=== PATIENT | female | born 1940 | race African-American/Black ===

== ENCOUNTER → 2016-06-28 | Outpatient (CLI) | payer MEDICARE, OTHER ==
[2014-04-18 09:10] VITALS: BP 138/76
[~2016-06-28] MED LIST: ALBU2.5V14 NEB; AMLO10TA2 PO; ATOR20TA58 PO; EZET10TA3 PO; FLUT12AE IH; HYDR28OI2 TP; METF500T4 PO; METH750T2 PO; MOME17SP NS; MONT10TA9 PO; MULT1TAB52 PO; OMEP20CA9 PO; OXYC10TA PO; OXYC80TA16 PO; PARO20TA3 PO; PIOG30TA20 PO; PREG100C PO; PROM6.25 PO; VALS1TAB22 PO; [UNRECOGNIZED DRUG - CODE] MC
--- NOTE | 2016-06-28 16:16 | RAD ---
DATE: 06/28/2016 EXAM: DIGITAL SCREEN BILAT W/CAD HISTORY: Routine screening COMPARISON: 03/11/2015 This study was interpreted with the benefit of Computerized Aided Detection (CAD). FINDINGS: Breast Density: SCATTERED The breast parenchyma shows scattered fibroglandular densities. Breast parenchyma level B. There are no dominant suspicious masses, suspicious microcalcifications or evidence of architectural distortion. Benign-appearing lymph node identified in the right upper outer breast.. Numerous benign-appearing calcifications identified in the bilateral breasts. IMPRESSION: Benign findings BI-RADS CATEGORY: 2 BENIGN FINDING RECOMMENDED FOLLOW-UP: 12M 12 MONTH FOLLOW-UP PQRS compliance statement: Patient information was entered into a reminder system with a target due date 06/28/2017 for the next mammogram. Mammography is a sensitive method for finding small breast cancers, but it does not detect them all and is not a substitute for careful clinical examination. A negative mammogram does not negate a clinically suspicious finding and should not result in delay in biopsying a clinically suspicious abnormality. "Our facility is accredited by the [employer] Mammography Program."
== END | disposition home or self-care (01) ==
LOC: MAMMO 14:29
PROVIDERS: ATTEND Obstetrics & Gynecology
DX: Z12.31 Encounter for screening mammogram for malignant neoplasm of breast (principal)
CPT/HCPCS: G0202; 77067

== ENCOUNTER → 2016-11-17 | Outpatient (CLI) | payer MEDICARE, OTHER ==
[2014-04-18 09:10] VITALS: BP 138/76
[~2016-11-17] MED LIST changes: +EZET10TA18 PO; -EZET10TA3 PO; -PIOG30TA20 PO; +PIOG30TA41 PO
--- NOTE | 2016-11-17 12:33 | RAD ---
Carotid ultrasound, 11/17/2016: History: Carotid bruit Duplex evaluation of the carotid arteries in the neck was performed including grayscale, color-flow and spectral Doppler analysis. There is mild intimal thickening and smooth plaquing at the carotid bifurcations. The peak systolic velocity in the right internal carotid artery is 76 cm/s an end-diastolic velocity of 26 cm/s. The peak systolic velocity in the left internal carotid artery is 59 cm/s with an end-diastolic velocity of 16 cm/s. No significant velocity acceleration is seen on either side to suggest high-grade stenosis. Antegrade flow is present in both vertebral arteries in the neck. IMPRESSION: Mild atherosclerotic plaquing at the carotid bifurcations with underlying luminal narrowing in the 0-50% diameter range bilaterally. Note: Stenosis calculations for CTA, MRA and conventional angiography are based upon determination of the distal ICA diameter in accordance with the NASCET methodology. Stenosis calculations for Doppler studies are derived from validated velocity criteria which are known to correlate with NASCET methodology of determining stenosis.
== END | disposition home or self-care (01) ==
LOC: US 13:10
PROVIDERS: ATTEND Family Medicine
DX: I65.23 Occlusion and stenosis of bilateral carotid arteries (principal)
CPT/HCPCS: 93880

== ENCOUNTER → 2017-06-30 | Outpatient (CLI) | payer MEDICARE, OTHER | END | disposition home or self-care (01) | LOC: MAMMO 12:53 | DX: Z12.31 Encounter for screening mammogram for malignant neoplasm of breast (principal); I10 Essential (primary) hypertension | CPT/HCPCS: 77063; 77067 ==

== ENCOUNTER 2017-10-13 11:36 | Inpatient (IN) | payer MEDICARE, OTHER ==
[~2017-10-13] VITALS: Ht 157.5 cm; Wt 66.7 kg
[~2017-10-13 11:36] MED LIST changes: -AMLO10TA2 PO; +AMLO10TA6 PO; +METF500T16 PO; -METF500T4 PO; -PROM6.25 PO; +PROM6.257 PO
[2017-10-13] MEDS ORDERED: fentaNYL PF VIAL 100 MCG/2 ML VIAL IV ONE ×2 (12:30→14:00)
[2017-10-13 12:35] LABS: BILIRUBIN,URINE NEGATIVE (NEG); CLARITY,URINE CLEAR; COLOR,URINE YELLOW; NITRITE,URINE NEGATIVE (NEG); PH,URINE 6.5; PROTEIN,URINE NEGATIVE (NEG-TRACE); UROBILINOGEN,URINE 0.2 mg/dL (0.2 mg/dL)
--- NOTE | 2017-10-13 12:42 | EKG ---
[facility] [address] [place] [address] Test Date: 2017-10-13 Test Time: 11:48:43 Pat Name: PRICE RODRIGES Department: Room: Gender: F Squad Boss: : 1940 Requested By: FAVIO MORENO Order Number: [id number] Reading MD: Ryne Arana MD Measurements Intervals [place] Rate: 86 P: 32 DC: 158 QRS: 61 QRSD: 76 T: 54 QT: 360 QTc: 434 Interpretive Statements SINUS RHYTHM Electronically Signed On 10-17-2017 11:54:57 CDT by Ryne Arana MD
--- NOTE | 2017-10-13 12:43 | RAD ---
EXAM: Chest, single view. HISTORY: Pain. COMPARISON: None. FINDINGS: A frontal view of the chest is obtained. There is no infiltrate, pleural effusion or pneumothorax. The heart is normal in size. IMPRESSION: No acute pulmonary finding. Electronically signed by: April Huggins MD (10/13/2017 12:40 PM) [place] [id number]
[2017-10-13] MEDS ORDERED: CONTRAST GIVEN. MC PRN ×2 (12:45→16:00)
[2017-10-13 12:49] LABS: BACTERIA,URINE 0 /HPF (0-FEW); WBC,URINE 0 /HPF (0-4)
[2017-10-13 12:50] LABS: SQUAMOUS EPITHELIAL CELL,UR MANY /LPF
[2017-10-13] MEDS ORDERED: ONDANSETRON PF 4 MG/2 ML VIAL. IV ONE (13:00)
[2017-10-13] MEDS ORDERED: IOHEXOL 300 MG/ML 100ML VIAL. IV ONE (13:00)
--- NOTE | 2017-10-13 13:23 | PHYS DOC ---
Past Medical History Past Medical History: Diabetes-Type II, Fibromyalgia, Hypertension, Other Additional Past Medical Histor: CHRONIC PAIN Past Surgical History: Other Additional Past Surgical Histo: HERNIA Alcohol Use: None Drug Use: None Adult General Chief Complaint Chief Complaint: ABDOMINAL PAIN HPI HPI Patient is a 76 year old F WITH CC OF ABDO PAIN DIFFUSE PAIN , DESCRIBED lower abdominal pain cramping feels like labor pains woke up with it this morning GOT WORSE OVER THE COURSE OF THE MORNING. It is now more sharp and radiating to the back with the primary care doctor who advised ER evaluation. Past medical history includes fibromyalgia type 2 diabetes chronic low back pain hyperlipidemia hypertension previous surgeries of her hernia back in the and a tubal ligation. PT HAS NAUSEA, NO DIARRHEA. LAST TIME SHE FELT LIKE THIS SHE HAD DIVERTICULITIS. Review of Systems Review of Systems Constitutional: Denies fever or chills [] Eyes: Denies change in visual acuity, redness, or eye pain [] Cardiovascular: No additional information not addressed in HPI [] Musculoskeletal: Denies back pain or joint pain [] Integument: Denies rash or skin lesions [] Neurologic: Denies headache, focal weakness or sensory changes [] Endocrine: Denies polyuria or polydipsia [] All other systems were reviewed and found to be within normal limits, except as documented in this note. Current Medications Current Medications Current Medications Medications (Trade) Dose Ordered Sig/Peggy Start Time Stop Time Status Last Admin Dose Admin Fentanyl Citrate (Fentanyl 2ml Vial) 50 mcg PRN Q1HR PRN 10/13/17 15:45 10/14/17 15:44 10/13/17 15:52 50 MCG Info (CONTRAST GIVEN -- Rx MONITORING) 1 each PRN DAILY PRN 10/13/17 16:00 10/15/17 15:59 Iohexol (Omnipaque 240 Mg/ml) 50 ml 1X ONCE 10/13/17 16:00 10/13/17 16:01 Iohexol (Omnipaque 300 Mg/ml) 90 ml 1X ONCE 10/13/17 13:00 10/13/17 13:01 DC 10/13/17 13:00 90 ML Ondansetron HCl (Zofran) 4 mg PRN Q8HRS PRN 10/13/17 15:45 10/14/17 15:44 Sodium Chloride 1,000 ml @ 100 mls/hr Q10H 10/13/17 15:37 10/14/17 15:36 Allergies Allergies Allergies Coded Allergies Type Severity Reaction Last Updated Verified atorvastatin Allergy Intermediate 04/18/14 Yes latex Allergy Intermediate 04/18/14 Yes morphine Allergy Intermediate 04/18/14 Yes pravastatin Allergy Intermediate 04/18/14 Yes verapamil Allergy Intermediate 04/18/14 Yes Physical Exam Physical Exam Constitutional: Well developed, well nourished, mild to moderate distress, non- toxic appearance. [] HENT: Normocephalic, atraumatic, bilateral external ears normal, oropharynx moist, no oral exudates, nose normal. [] Eyes: PERRLA, EOMI, conjunctiva normal, no discharge. [] Neck: Normal range of motion, no tenderness, supple, no stridor. [] Cardiovascular:Heart rate regular rhythm, no murmur [] Lungs & Thorax: Bilateral breath sounds clear to auscultation [] Abdomen: Bowel sounds normal, soft, bilateral lower quadrant AND PERIUMBILICAL tenderness. Tenderness, no masses, no pulsatile masses. [] Skin: Warm, dry, no erythema, no rash. [] Back: No tenderness, no CVA tenderness. [] Extremities: No tenderness, no cyanosis, no clubbing, ROM intact, no edema. [] Neurologic: Alert and oriented X 3, normal motor function, normal sensory function, no focal deficits noted. [] Psychologic: Affect normal, judgement normal, mood normal. [] Current Patient Data Vital Signs Vital Signs Date Time Temp Pulse Resp B/P (MAP) Pulse Ox O2 Delivery O2 Flow Rate FiO2 10/13/17 15:52 22 95 Room Air 10/13/17 11:54 74 208/102 (137) 10/13/17 11:40 98.4 98.4 Lab Values Laboratory Tests Test 10/13/17 11:40 10/13/17 13:05 Urine Collection Type Unknown Urine Color Yellow Urine Clarity Clear Urine pH 6.5 Urine Specific [place] 1.025 Urine Protein Negative mg/dL (NEG-TRACE) Urine Glucose (UA) >=1000 mg/dL (NEG) Urine Ketones (Stick) Negative mg/dL (NEG) Urine Blood Negative (NEG) Urine Nitrite Negative (NEG) Urine Bilirubin Negative (NEG) Urine Urobilinogen Dipstick 0.2 mg/dL (0.2 mg/dL) Urine Leukocyte Esterase Small (NEG) Urine RBC 1-2 /HPF (0-2) Urine WBC 0 /HPF (0-4) Urine Squamous Epithelial Cells Many /LPF Urine Bacteria 0 /HPF (0-FEW) White Blood Count 4.5 x10^3/uL (4.0-11.0) Red Blood Count 4.22 x10^6/uL (3.50-5.40) Hemoglobin 13.2 g/dL (12.0-15.5) Hematocrit 38.7 % (36.0-47.0) Mean Corpuscular Volume 92 fL (79-100) Mean Corpuscular Hemoglobin 31 pg (25-35) Mean Corpuscular Hemoglobin Concent 34 g/dL (31-37) Red Cell Distribution Width 12.4 % (11.5-14.5) Platelet Count 224 x10^3/uL (140-400) Neutrophils (%) (Auto) 62 % (31-73) Lymphocytes (%) (Auto) 27 % (24-48) Monocytes (%) (Auto) 7 % (0-9) Eosinophils (%) (Auto) 3 % (0-3) Basophils (%) (Auto) 1 % (0-3) Neutrophils # (Auto) 2.8 x10^3uL (1.8-7.7) Lymphocytes # (Auto) 1.2 x10^3/uL (1.0-4.8) Monocytes # (Auto) 0.3 x10^3/uL (0.0-1.1) Eosinophils # (Auto) 0.1 x10^3/uL (0.0-0.7) Basophils # (Auto) 0.0 x10^3/uL (0.0-0.2) Prothrombin Time 12.5 SEC (11.7-14.0) Prothrombin Time INR 1.0 (0.8-1.1) Sodium Level 135 mmol/L (136-145) L Potassium Level 4.3 mmol/L (3.5-5.1) Chloride Level 98 mmol/L (98-107) Carbon Dioxide Level 28 mmol/L (21-32) Anion Gap 9 (6-14) Blood Urea Nitrogen 13 mg/dL (7-20) Creatinine 0.9 mg/dL (0.6-1.0) Estimated GFR (Cockcroft-Gault) 74.1 BUN/Creatinine Ratio 14 (6-20) Glucose Level 266 mg/dL (70-99) H Lactic Acid Level 2.2 mmol/L (0.4-2.0) H Calcium Level 10.0 mg/dL (8.5-10.1) Total Bilirubin 1.0 mg/dL (0.2-1.0) Aspartate Amino Transferase (AST) 15 U/L (15-37) Alanine Aminotransferase (ALT) 26 U/L (14-59) Alkaline Phosphatase 81 U/L (46-116) Troponin I Quantitative < 0.017 ng/mL (0.000-0.055) Total Protein 8.1 g/dL (6.4-8.2) Albumin 4.3 g/dL (3.4-5.0) Albumin/Globulin Ratio 1.1 (1.0-1.7) Lipase 93 U/L (73-393) Laboratory Tests 10/13/17 13:05 Laboratory Tests 10/13/17 13:05 EKG EKG [] Interpretation Time: EKG shows normal sinus rhythm with a rate of [address] elevation no ischemia intervals appear normal interpreted by me the time of encounter. Radiology/Procedures Radiology/Procedures [] Impressions: FINDINGS: A frontal view of the chest is obtained. There is no infiltrate, pleural effusion or pneumothorax. The heart is normal in size. IMPRESSION: No acute pulmonary finding. Electronically signed by: April Baer MD (10/13/2017 12:40 PM) [facility] DICTATED and SIGNED BY: APRIL BAER MD DATE: 10/13/17 1239 Course & Med Decision Making Course & Med Decision Making Pertinent Labs and Imaging studies reviewed. (See chart for details) []76-year-old female with the above past medical history presenting with bilateral severe lower abdominal pain sharp and cramping with radiation to the back. Broad differential plan for stat CT scan as his creatinine comes back. Slight delay in ER care due to delayed chemistry panel was a difficult stick. CT scan as noted above. There was no vascular emergency no evidence of ischemic bowel lactic acid was mildly elevated this is nonspecific. I did speak with the radiologist due to my concern on my read of the CT scan about a dilated small loop of bowel. He said it is not meet criteria for obstruction nevertheless he said if clinical concern could do a CT scan with oral contrast. re-eval the patient still nauseous and crampy moderate to severe pain. ct oral con ordered admit castle requested gi consult, placed. Rodriguez Disclaimer Michael Disclaimer This electronic medical record was generated, in whole or in part, using a voice recognition dictation system. Departure Departure Impression: Primary Impression: Abdominal pain Disposition: ADMITTED INPATIENT Condition: STABLE Referrals: DALILA CUEVAS MD (PCP) FAVIO MORENO MD Oct 13, 2017 13:23
[2017-10-13 13:29] LABS: CREATININE 0.9 mg/dL (0.6-1.0); GFR 74.1; POTASSIUM 4.3 mmol/L (3.5-5.1)
[2017-10-13 13:35] LABS: ALBUMIN 4.3 g/dL (3.4-5.0); ALBUMIN/GLOBULIN RATIO 1.1 (1.0-1.7); TOTAL PROTEIN 8.1 g/dL (6.4-8.2)
[2017-10-13 13:37] LABS: BASO % 1 % (0-3); EOS # 0.1 x10^3/uL (0.0-0.7); EOS % 3 % (0-3); HEMATOCRIT 38.7 % (36.0-47.0); HEMOGLOBIN 13.2 g/dL (12.0-15.5); LYMPH # 1.2 x10^3/uL (1.0-4.8); LYMPH % 27 % (24-48); MEAN CORPUSCULAR HEMOGLOBIN 31 pg (25-35); MEAN CORPUSCULAR HGB CONC 34 g/dL (31-37); MEAN CORPUSCULAR VOLUME 92 fL (79-100); MONO # 0.3 x10^3/uL (0.0-1.1); MONO % 7 % (0-9); NEUT # 2.8 x10^3uL (1.8-7.7); NEUT % 62 % (31-73); PLATELET COUNT 224 x10^3/uL (140-400); RED BLOOD COUNT 4.22 x10^6/uL (3.50-5.40); RED CELL DISTRIBUTION WIDTH 12.4 % (11.5-14.5); WHITE BLOOD COUNT 4.5 x10^3/uL (4.0-11.0)
[2017-10-13 13:56] LABS: PROTHROMBIN TIME PATIENT 12.5 SEC (11.7-14.0)
--- NOTE | 2017-10-13 15:06 | RAD ---
CT ANGIOGRAPHY ABD AND PELVIS dated 10/13/2017 12:19 PM Indication:..SEVERE ABD PAIN INJ 90 ML OMNI 300 NO PREV . Comparison: CT dated 12/15/2014. Technique: Contiguous axial imaging of the abdomen and pelvis performed with thin cut coronal and sagittal reconstructions and 3-D rotational reconstructions. 90 cc Omnipaque 300 used. One or more of the following individualized dose reduction techniques were utilized for this examination: 1. Automated exposure control 2. Adjustment of the mA and/or kV according to patient size 3. Use of iterative reconstruction technique Findings: Contrast bolus is adequate. The abdominal aorta is normal in caliber. No intimal flap or periaortic fluid collection. Celiac artery and SMA are patent. There is mild calcific plaque at the SMA origin and bilateral renal artery origins. There is resultant mild narrowing of the celiac and SMA origins. Mild narrowing of the right renal artery origin. The TAYE is mildly narrowed at its origin. Bilateral common iliac arteries and external iliac arteries are patent. There is a small focus of enhancement within the posterior right lobe liver on image 164 that measures 6 mm, new from prior exam. Additional hyperenhancing focus at the hepatic dome on image 63 measures 8 mm, increased in size from prior study. Hypodense focus in the left lobe on image 195 measures 10 mm. No biliary ductal dilatation. Spleen, adrenal glands and kidneys are unremarkable. No hydronephrosis. Gallbladder unremarkable. There is been progressive atrophy of the pancreatic tail relative to the prior study. No definite mass at the pancreatic body or head. No inflammatory changes surrounding the gland. Unopacified GI tract normal in caliber and contour. No focal bowel wall thickening. No inflammatory stranding in the mesentery. The appendix is normal in caliber. Scattered diverticula throughout the colon. No ascites or lymphadenopathy. Liver is otherwise homogeneous. Images of pelvis show mildly distended urinary bladder. Uterus and adnexa are unremarkable. No free fluid or lymphadenopathy. Bone windows show no acute findings. Mild multilevel spondylosis. Limited images of lung bases show minimal dependent groundglass opacity, likely atelectasis. IMPRESSION: 1. No acute abnormality of abdomen or pelvis. No evidence of aortic aneurysm or aortic leak. 2. Atherosclerotic changes resulting in mild narrowing of the SMA and right renal artery origin. 3. Indeterminate hyperenhancing nodules within the liver, increased from the 2015 exam, of uncertain etiology. Although these could represent benign areas of vascular shunting, hypervascular metastasis or other liver lesions cannot be excluded. Of note, there has been some progressive atrophy of the pancreatic tail relative to the prior exam, however no discrete primary mass is visualized. Consider MRI with and without contrast for better evaluation. Electronically signed by: Brent Camara MD (10/13/2017 3:03 PM) [facility]
[2017-10-13] MEDS ORDERED: ONDANSETRON PF 4 MG/2 ML VIAL. IV PRN (15:45)
[2017-10-13] MEDS: fentaNYL PF VIAL 100 MCG/2 ML VIAL IV PRN ×6 (15:52→22:32)
[2017-10-13] MEDS ORDERED: IOHEXOL 240 MG/ML 50ML VIAL. PO ONE (16:00)
--- NOTE | 2017-10-13 17:39 | RAD ---
PQRS Compliance statement: One or more of the following individualized dose reduction techniques were utilized for this examination: 1. Automated exposure control. 2. Adjustment of the mA and/or kV according to patient size. 3. Use of iterative reconstruction technique. Indication:SEVERE ABD PAIN PO CONTRAST ONLY TECHNIQUE: CT abdomen and pelvis without IV contrast with multiplanar reformats. COMPARISON: CT angiogram from the same day earlier FINDINGS: Limited evaluation of solid abdominal organs due to lack of IV contrast. Heart is normal in size. No pericardial or pleural effusion. Clear lung bases. 1.5 x 1.2 cm low attenuating lesion is seen in the segment 2 of the liver. Noncontrast appearance of the spleen, gallbladder, pancreas, adrenals and kidneys within normal limits. Excreted contrast is seen opacifying the bilateral renal collecting system and urinary bladder. No enlarged retroperitoneal or pelvic adenopathy. No free pelvic fluid or ascites. No bowel obstruction. Normal appendix. Uterus is present. No filling defects in the urinary bladder. The proximal bowel loops including duodenum and jejunum are distended with fluid measuring 3.3 cm in diameter. No pneumatosis intestinalis or pneumoperitoneum. No suspicious bony lesion. IMPRESSION: 1. Distended loops of proximal small bowel (duodenum and jejunum) with air-fluid levels discrete transition point. Findings reflects proximal small bowel ileus or developing small bowel obstruction. Electronically signed by: José Miguel Nobles DO (10/13/2017 5:36 PM) [facility]
[2017-10-13] MEDS ORDERED: SERT50TA PO (18:27)
[2017-10-13] MEDS ORDERED: GLIP5TAB10 PO (18:27)
[2017-10-13] MEDS ORDERED: OXYC15TA PO (18:27)
[2017-10-13] MEDS: IV NORMAL SALINE 1000ML BAG 1,000 ML IV SCH (18:34)
[2017-10-13 19:11] VITALS: BP 136/62
[2017-10-13] MEDS ORDERED: PROCHLORPERAZINE 10 MG/2 ML VIAL. IV PRN (21:45)
[2017-10-13 23:00] VITALS: BP 120/49
--- NOTE | 2017-10-14 01:07 | HP ---
ADMIT DATE: 10/13/2017 CHIEF COMPLAINT: Abdominal pain. HISTORY OF PRESENT ILLNESS: The patient is a pleasant 76-year-old female presents to the ER with abdominal pain that has been occurring for several days. She describes it as crampy in nature. It got worse this morning. She tried taking some home meds but that did not work. I discussed the case with ER physician. We did some imaging, showing us one loop of bowel that is a little distended about 3.5 cm. We plan to admit the patient with consultation to GI. PAST MEDICAL HISTORY: Diabetes, fibromyalgia, hypertension, chronic pain, hernia repair. ALLERGIES: ATORVASTATIN, LATEX, MORPHINE, PRAVASTATIN and VERAPAMIL. FAMILY HISTORY: Coronary artery disease. SOCIAL HISTORY: She does not drink, smoke or take drugs. MEDICATIONS: Reviewed, please refer to the MRAD. REVIEW OF SYSTEMS: GENERAL: No history of weight change, weakness or fevers. SKIN: No bruising, hair changes or rashes. EYES: No blurred, double or loss of vision. NOSE AND THROAT: No history of nosebleeds, hoarseness or sore throat. HEART: No history of palpitations, chest pain or shortness of breath on exertion. LUNGS: Denies cough, hemoptysis, wheezing or shortness of breath. GASTROINTESTINAL: The patient complains of abdominal pain. GENITOURINARY: No history of frequency, urgency, hesitancy or nocturia. NEUROLOGIC: Denies history of numbness, tingling, tremor or weakness. PSYCHIATRIC: No history of panic, anxiety or depression. ENDOCRINE: No history of heat or cold intolerance, polyuria or polydipsia. EXTREMITIES: Denies muscle weakness, joint pain, pain on walking or stiffness. PHYSICAL EXAMINATION: VITAL SIGNS: Temperature 98.5, pulse 79, respirations 18 and blood pressure 135/90. GENERAL: She is alert and complaining of abdominal pain. HEART: Normal S1 and S2. LUNGS: Clear to auscultation. ABDOMEN: Soft, tender and distended. EXTREMITIES: Trace edema. SKIN: No rashes. ENDOCRINE: No thyromegaly. LYMPHATICS: No cervical nodes. HEMATOPOIETIC: No bruising. LABORATORY DATA: Hematology is normal. Electrolytes are normal other than a sodium of 135 and glucose 266. Lactic acid 2.2. ASSESSMENT AND PLAN: Clinical bowel obstruction. The patient has been admitted. We will give her IV fluids, p.r.n. antiemetics, p.r.n. narcotics. Consult Gastrointestinal. Frequent labs. Home meds. MIRNA HOSKINS DO DR: BRITNEY/raciel JOB#: [id number] / [id number]
[2017-10-14 03:00] VITALS: BP 135/64
[2017-10-14] MEDS: IV NORMAL SALINE 1000ML BAG 1,000 ML IV SCH (03:48)
[2017-10-14] MEDS: fentaNYL PF VIAL 100 MCG/2 ML VIAL IV PRN ×2 (03:52→06:26)
[2017-10-14 07:00] VITALS: BP 134/70
[2017-10-14] MEDS ORDERED: ACETAMINOPHEN/CODEINE 300/30MG TABLET. PO PRN (08:45)
[2017-10-14] MEDS ORDERED: ACETAMINOPHEN 500 MG TABLET PO PRN (08:45)
[2017-10-14] MEDS ORDERED: fentaNYL PF VIAL 100 MCG/2 ML VIAL IV PRN (08:45)
[2017-10-14] MEDS ORDERED: ONDANSETRON PF 4 MG/2 ML VIAL. IV PRN (08:45)
[2017-10-14] MEDS ORDERED: FLUTICASONE 50MCG/NASAL SPRAY 16GM BOTTLE. NS SCH (09:00)
[2017-10-14] MEDS ORDERED: ENOXAPARIN 40 MG/0.4 ML SYRINGE. SQ SCH (09:00)
--- NOTE | 2017-10-14 09:47 | PDOC3 ---
Discharge Summary Visit Information Date of Admission: Oct 13, 2017 Date of Discharge: Oct 14, 2017 Admitting Diagnosis Comment: abd pain 1 day, resolved, likely viral gastroenteritis SIRS POA sec to above no organ dysfcn Brief Hospital Course Allergies Allergies Coded Allergies Type Severity Reaction Last Updated Verified atorvastatin Allergy Intermediate 04/18/14 Yes latex Allergy Intermediate 04/18/14 Yes morphine Allergy Intermediate 04/18/14 Yes pravastatin Allergy Intermediate 04/18/14 Yes verapamil Allergy Intermediate 04/18/14 Yes Vital Signs Vital Signs Date Time Temp Pulse Resp B/P (MAP) Pulse Ox O2 Delivery O2 Flow Rate FiO2 10/14/17 08:00 Room Air 10/14/17 07:00 97.9 62 17 134/70 (91) 97 97.9 Lab Results Laboratory Tests Test 10/13/17 11:40 10/13/17 13:05 Urine Collection Type Unknown Urine Color Yellow Urine Clarity Clear Urine pH 6.5 Urine Specific [place]t 1.025 Urine Protein Negative mg/dL (NEG-TRACE) Urine Glucose (UA) >=1000 mg/dL (NEG) Urine Ketones (Stick) Negative mg/dL (NEG) Urine Blood Negative (NEG) Urine Nitrite Negative (NEG) Urine Bilirubin Negative (NEG) Urine Urobilinogen Dipstick 0.2 mg/dL (0.2 mg/dL) Urine Leukocyte Esterase Small (NEG) Urine RBC 1-2 /HPF (0-2) Urine WBC 0 /HPF (0-4) Urine Squamous Epithelial Cells Many /LPF Urine Bacteria 0 /HPF (0-FEW) White Blood Count 4.5 x10^3/uL (4.0-11.0) Red Blood Count 4.22 x10^6/uL (3.50-5.40) Hemoglobin 13.2 g/dL (12.0-15.5) Hematocrit 38.7 % (36.0-47.0) Mean Corpuscular Volume 92 fL (79-100) Mean Corpuscular Hemoglobin 31 pg (25-35) Mean Corpuscular Hemoglobin Concent 34 g/dL (31-37) Red Cell Distribution Width 12.4 % (11.5-14.5) Platelet Count 224 x10^3/uL (140-400) Neutrophils (%) (Auto) 62 % (31-73) Lymphocytes (%) (Auto) 27 % (24-48) Monocytes (%) (Auto) 7 % (0-9) Eosinophils (%) (Auto) 3 % (0-3) Basophils (%) (Auto) 1 % (0-3) Neutrophils # (Auto) 2.8 x10^3uL (1.8-7.7) Lymphocytes # (Auto) 1.2 x10^3/uL (1.0-4.8) Monocytes # (Auto) 0.3 x10^3/uL (0.0-1.1) Eosinophils # (Auto) 0.1 x10^3/uL (0.0-0.7) Basophils # (Auto) 0.0 x10^3/uL (0.0-0.2) Prothrombin Time 12.5 SEC (11.7-14.0) Prothromb Time International Ratio 1.0 (0.8-1.1) Sodium Level 135 mmol/L (136-145) Potassium Level 4.3 mmol/L (3.5-5.1) Chloride Level 98 mmol/L (98-107) Carbon Dioxide Level 28 mmol/L (21-32) Anion Gap 9 (6-14) Blood Urea Nitrogen 13 mg/dL (7-20) Creatinine 0.9 mg/dL (0.6-1.0) Estimated GFR (Cockcroft-Gault) 74.1 BUN/Creatinine Ratio 14 (6-20) Glucose Level 266 mg/dL (70-99) Lactic Acid Level 2.2 mmol/L (0.4-2.0) Calcium Level 10.0 mg/dL (8.5-10.1) Total Bilirubin 1.0 mg/dL (0.2-1.0) Aspartate Amino Transf (AST/SGOT) 15 U/L (15-37) Alanine Aminotransferase (ALT/SGPT) 26 U/L (14-59) Alkaline Phosphatase 81 U/L (46-116) Troponin I Quantitative < 0.017 ng/mL (0.000-0.055) Total Protein 8.1 g/dL (6.4-8.2) Albumin 4.3 g/dL (3.4-5.0) Albumin/Globulin Ratio 1.1 (1.0-1.7) Lipase 93 U/L (73-393) Laboratory Tests Test 10/13/17 11:40 10/13/17 13:05 Urine Collection Type Unknown Urine Color Yellow Urine Clarity Clear Urine pH 6.5 Urine Specific [place]t 1.025 Urine Protein Negative mg/dL (NEG-TRACE) Urine Glucose (UA) >=1000 mg/dL (NEG) Urine Ketones (Stick) Negative mg/dL (NEG) Urine Blood Negative (NEG) Urine Nitrite Negative (NEG) Urine Bilirubin Negative (NEG) Urine Urobilinogen Dipstick 0.2 mg/dL (0.2 mg/dL) Urine Leukocyte Esterase Small (NEG) Urine RBC 1-2 /HPF (0-2) Urine WBC 0 /HPF (0-4) Urine Squamous Epithelial Cells Many /LPF Urine Bacteria 0 /HPF (0-FEW) White Blood Count 4.5 x10^3/uL (4.0-11.0) Red Blood Count 4.22 x10^6/uL (3.50-5.40) Hemoglobin 13.2 g/dL (12.0-15.5) Hematocrit 38.7 % (36.0-47.0) Mean Corpuscular Volume 92 fL (79-100) Mean Corpuscular Hemoglobin 31 pg (25-35) Mean Corpuscular Hemoglobin Concent 34 g/dL (31-37) Red Cell Distribution Width 12.4 % (11.5-14.5) Platelet Count 224 x10^3/uL (140-400) Neutrophils (%) (Auto) 62 % (31-73) Lymphocytes (%) (Auto) 27 % (24-48) Monocytes (%) (Auto) 7 % (0-9) Eosinophils (%) (Auto) 3 % (0-3) Basophils (%) (Auto) 1 % (0-3) Neutrophils # (Auto) 2.8 x10^3uL (1.8-7.7) Lymphocytes # (Auto) 1.2 x10^3/uL (1.0-4.8) Monocytes # (Auto) 0.3 x10^3/uL (0.0-1.1) Eosinophils # (Auto) 0.1 x10^3/uL (0.0-0.7) Basophils # (Auto) 0.0 x10^3/uL (0.0-0.2) Prothrombin Time 12.5 SEC (11.7-14.0) Prothromb Time International Ratio 1.0 (0.8-1.1) Sodium Level 135 mmol/L (136-145) Potassium Level 4.3 mmol/L (3.5-5.1) Chloride Level 98 mmol/L (98-107) Carbon Dioxide Level 28 mmol/L (21-32) Anion Gap 9 (6-14) Blood Urea Nitrogen 13 mg/dL (7-20) Creatinine 0.9 mg/dL (0.6-1.0) Estimated GFR (Cockcroft-Gault) 74.1 BUN/Creatinine Ratio 14 (6-20) Glucose Level 266 mg/dL (70-99) Lactic Acid Level 2.2 mmol/L (0.4-2.0) Calcium Level 10.0 mg/dL (8.5-10.1) Total Bilirubin 1.0 mg/dL (0.2-1.0) Aspartate Amino Transf (AST/SGOT) 15 U/L (15-37) Alanine Aminotransferase (ALT/SGPT) 26 U/L (14-59) Alkaline Phosphatase 81 U/L (46-116) Troponin I Quantitative < 0.017 ng/mL (0.000-0.055) Total Protein 8.1 g/dL (6.4-8.2) Albumin 4.3 g/dL (3.4-5.0) Albumin/Globulin Ratio 1.1 (1.0-1.7) Lipase 93 U/L (73-393) Brief Hospital Course Ms. Johns is a 76 old [place] female with unrelated past medical history comes in because of acute onset abdominal pain. Lasted only for 24 hours , admitted OBSERVATION and feels well. No real elyte abnormalities lactate was elevated at 2.2 though hence admitted. Feels better after IV fluid,and supprotive meds, tolerating a diet then we'll go home today. No change in meds No consults Needed Procedures performed none OBS dc today Discharge Information Condition at Discharge: Improved, Stable Disposition/Orders: D/C to Home Scheduled Albuterol Sulfate (Albuterol Sulfate Conc Neb Soln) 2.5 Mg/0.5 Ml Vial.neb, 1 VIAL NEB Q6HRS, #120 Ref 5 (Reported) Entered as Reported by: WESLEY MIXON on 04/18/14 7630 Last Action: Converted on 10/14/17836 by ALISHA MAGALLON Amlodipine Besylate (Amlodipine Besylate) 10 Mg Tablet, 1 TAB PO DAILY, #30 Ref 5 (Reported) Entered as Reported by: WESLEY MIXON on 04/18/14753 Last Action: HELD on 10/14/17836 by ALISHA MAGALLON Atorvastatin Calcium (Atorvastatin Calcium) 20 Mg Tablet, 1 TAB PO DAILY, #30 Ref 5 (Reported) Entered as Reported by: WESLEY MIXON on 04/18/14753 Last Action: HELD on 10/14/17836 by ALISHA MAGALLON Fluticasone Propionate (Flovent 110MCG Hfa) 12 Gm Aer.w.adap, 3 PUFF IH BID, #1 Ref 2 (Reported) Entered as Reported by: WESLEY MIXON on 04/18/14753 Last Action: Converted on 10/14/17836 by ALISHA MAGALLON Glipizide (Glipizide) 5 Mg Tablet, 1 TAB PO BID, #180 Ref 3 (Reported) Entered as Reported by: HEATH GRIER on 10/13/171826 Last Action: HELD on 10/14/17836 by ALISHA MAGALLON Metformin Hcl (Metformin Hcl) 500 Mg Tablet, 1 TAB PO BID, #60 Ref 3 (Reported) Entered as Reported by: WESLEY MIXON on 04/18/14753 Last Action: HELD on 10/14/17836 by ALISHASHREE MAGALLON Mometasone Furoate (Nasonex) 17 Gm [place].pump, 2 SPRAY NS DAILY, #1 Ref 5 ( Reported) Entered as Reported by: WESLEY MIXON on 04/18/14753 Last Action: Converted on 10/14/17836 by ALISHA MAGALLON Multivitamin (Multivitamins) 1 Each Tablet, 1 TAB PO DAILY, #90 Ref 3 (Reported) Entered as Reported by: WESLEY MIXON on 04/18/14753 Last Action: HELD on 10/14/17836 by ALISHAElisa HANNA Omeprazole (Omeprazole) 20 Mg Capsule.dr, 1 CAP PO BID, #30 Ref 5 (Reported) Entered as Reported by: WESLEY MIXON on 04/18/14753 Last Action: HELD on 10/14/17836 by ALISHA MAGALLON Pregabalin (Lyrica) 100 Mg Capsule, 1 CAP PO DAILY, #90 Ref 2 (Reported) Entered as Reported by: WESLEY MIXON on 04/18/14753 Last Action: HELD on 10/14/17836 by ALISHA MAGALLON Sertraline Hcl (Zoloft) 50 Mg Tablet, 50 MG PO HS for ANTI-DEPRESSANT, Ref 0 ( Reported) Entered as Reported by: HEATH GRIER on 10/13/171826 Last Action: HELD on 10/14/17836 by ALISHA MAGALLON Valsartan/Hydrochlorothiazide (Diovan Hct 320-25 Mg Tablet) 1 Each Tablet, 1 TAB PO DAILY, #30 Ref 5 (Reported) Entered as Reported by: WESLEY MIXON on 04/18/14753 Last Action: HELD on 10/14/17836 by ALISHA MAGALLON Scheduled PRN Oxycodone Hcl (Oxycontin) 80 Mg Tab.er.12h, 15 MG PO DAILY PRN for PAIN, ( Reported) Entered as Reported by: WESLEY MIXON on 04/18/14753 Last Action: HELD on 10/14/17836 by ALISHA MAGALLON Oxycodone Hcl (Oxycodone Hcl) 15 Mg Tablet, 15 MG PO BID PRN for PAIN, Ref 0 ( Reported) Entered as Reported by: HEATH GRIER on 10/13/171826 Last Action: HELD on 10/14/17836 by ALISHA MAGALLON Discontinued Medications Oxycodone Hcl (Oxycodone Hcl) 10 Mg Tablet, 1 TAB PO BID, #90 (Reported) Discontinued Reason: Prescription changed Entered as Reported by: WESLEY MIXON on 04/18/14753 ALISHA MAGALLON MD Oct 14, 2017 09:47
[2017-10-14 11:00] VITALS: BP 117/61
[2017-10-14] MEDS ORDERED: ALBUTEROL SULFATE 2.5 MG/3 ML NEBU. NEB SCH ×2 (12:00→13:00)
[2017-10-14] MEDS ORDERED: BUDESONIDE 0.5 MG/2 ML NEBU. NEB SCH (20:00)
[2017-10-14] MEDS ORDERED: FAMOTIDINE 20 MG/2 ML VIAL IVP SCH (21:00)
== END 2017-10-14 13:50 | disposition home or self-care (01) | DRG 392 ==
LOC: ER 11:36 → 5 NORTH 15:40
PROVIDERS: ADMIT Internal Medicine; ATTEND Internal Medicine
DX: A08.4 Viral intestinal infection, unspecified (principal); K56.609 Unspecified intestinal obstruction, unspecified as to partial versus complete obstruction; R65.10 Systemic inflammatory response syndrome (SIRS) of non-infectious origin without acute organ dysfunction; E11.9 Type 2 diabetes mellitus without complications; E78.5 Hyperlipidemia, unspecified; I10 Essential (primary) hypertension; G89.29 Other chronic pain; M79.7 Fibromyalgia; Z79.84 Long term (current) use of oral hypoglycemic drugs; Z82.49 Family history of ischemic heart disease and other diseases of the circulatory system; Z88.5 Allergy status to narcotic agent; Z88.8 Allergy status to other drugs, medicaments and biological substances; Z91.040 Latex allergy status
CPT/HCPCS: 36415; 71045; 74174; 74176; 80053; 81001; 83605; 83690; 84484; 85025; 85610; 87086; 93005; 94640; 94760; 96374; 96375; 96376; J0780; J1650; J2060; J2405; J3010; J7030; J7613; Q9967; 99285-25

== ENCOUNTER → 2017-11-09 | Outpatient (CLI) | payer MEDICARE, OTHER ==
[2017-10-14 11:00] VITALS: BP 117/61
[~2017-11-09] MED LIST changes: +GADOBUTROL 7.5 MMOL/7.5 ML VIAL IV ONE; +GLIP5TAB10 PO; +OXYC15TA PO; +SERT50TA PO
--- NOTE | 2017-11-09 13:05 | KCIC ---
MRI of the abdomen without and with intravenous contrast (liver protocol MRI): History: Liver lesions on CT, further evaluation. Comparison: CT angiography abdomen pelvis October 13, 2017. Technique: MRI of the abdomen was performed using multiple sequences and planes both prior to and after intravenous gadolinium, 6 mL Gadavist. Sequences included a pre and post contrasted dynamic T1 weighted series. Findings: Liver is without evidence of focal fatty infiltration. Left hepatic lobe segment 2 demonstrates 1.4 cm lesion with increased T2 and decreased T1 signal. This does not enhance and is compatible with small cyst. Right hepatic lobe, segment 8, demonstrates 0.8 cm lesion with increased T2 and decreased T1 signal. On the arterial phase, no appreciable enhancement is identified, although it is thought that what is titled arterial phase is too early in contrast bolus. On what is called the portal venous phase, there is enhancement which is somewhat similar to the blood pool. Lesion remains more intense than the remainder of the liver parenchyma on the later postcontrast phases, although appears to match blood pool. This is favored to represent hemangioma. There is an additional lesion in the posterior right hepatic lobe, segment 7, which on the current examination is not as evident. This is a 5 mm lesion with increased T2 signal in this location (series 5 image 8), although on the most delayed post contrasted T1 phase (series 10 images 13 through 15) appears to be part of venovenous shunt. More peripherally in the subcapsular right hepatic lobe, segment 7, there is a 3 mm nonenhancing cyst. Additional nonenhancing cyst measuring 3 mm is seen in the subcapsular right hepatic segment 8. Spleen and bilateral adrenal glands are unremarkable. Pancreas is without evidence of inflammation. Pancreatic duct at the head of the pancreas is mildly dilated at 4 mm; no causative lesion is identified. The common bile duct has normal caliber at 5 mm. The gallbladder is unremarkable. Bilateral kidneys enhance symmetrically without evidence of obstruction. Impression: 1. Several small hepatic lesions, thought to be combination of hemangioma, cysts, and venovenous shunt. 2. Pancreatic duct at the head of the pancreas demonstrates mild dilatation, but cause is not identified. No pancreatic inflammation is seen. No evidence of biliary obstruction. Electronically signed by: Brent Pierce MD (11/09/2017 1:02 PM) [place] [id number]
== END | disposition home or self-care (01) ==
LOC: KCIC MRI 10:31
PROVIDERS: ATTEND Family Medicine
DX: K76.9 Liver disease, unspecified (principal); E78.5 Hyperlipidemia, unspecified; E11.9 Type 2 diabetes mellitus without complications; E78.00 Pure hypercholesterolemia, unspecified; Z79.84 Long term (current) use of oral hypoglycemic drugs
CPT/HCPCS: 74183; A9585

== ENCOUNTER → 2017-12-07 | Day surgery (SDC) | payer MEDICARE, OTHER ==
[~2017-12-07] MED LIST changes: +DESO15CR8 TP; +EMPA10TA PO; -GADOBUTROL 7.5 MMOL/7.5 ML VIAL IV ONE; +MOME45CR2 TP; +PROPOFOL 20 ML IV ONE; +SUMA100T4 PO; +ZOLP5TAB5 PO
[2017-12-07 13:08] VITALS: BP 178/80
== END | disposition home or self-care (01) ==
LOC: ENDOS 11:29
PROVIDERS: ATTEND Internal Medicine Gastroenterology
DX: K29.50 Unspecified chronic gastritis without bleeding (principal); I10 Essential (primary) hypertension; E11.9 Type 2 diabetes mellitus without complications; F41.9 Anxiety disorder, unspecified; F32.9 Major depressive disorder, single episode, unspecified; E78.00 Pure hypercholesterolemia, unspecified; M19.90 Unspecified osteoarthritis, unspecified site; M79.7 Fibromyalgia; Z82.49 Family history of ischemic heart disease and other diseases of the circulatory system; Z88.5 Allergy status to narcotic agent; Z88.8 Allergy status to other drugs, medicaments and biological substances; Z88.6 Allergy status to analgesic agent; Z91.040 Latex allergy status; Z79.84 Long term (current) use of oral hypoglycemic drugs; Z98.890 Other specified postprocedural states; Z98.51 Tubal ligation status; Z96.653 Presence of artificial knee joint, bilateral; Z79.899 Other long term (current) drug therapy
CPT/HCPCS: 43235; J2704

== ENCOUNTER → 2017-12-13 | Outpatient (CLI) | payer MEDICARE, OTHER ==
[2017-12-07 13:08] VITALS: BP 178/80
[~2017-12-13] MED LIST changes: -PROPOFOL 20 ML IV ONE; +REGADENOSON 0.4 MG/5 ML DISP.SYRIN. IV ONE
--- NOTE | 2017-12-13 11:48 | RAD ---
MR#: [id number] Date of Study: 12/13/2017 Ordering Physician: VIOLETA REYEZ, Referring Physician: TAMARA CARDOZA Tech: KHADIJAH Srivastava, ARRT (R) (N)Willy Kaba [facility] APPROVED REPORT Test Type: Pharmacological Stress Nurse/Tech: Nicki Andrade RN Test Indications: Chest Pain Cardiac History: Hypertension, Diabetes,asthma,family history Medications: See Electronic Medical Record Medical History: See Electronic Medical Record Resting ECG: SB Resting Heart Rate: 54 bpm Resting Blood Pressure: 161/73mmHg Pretest Chest Pain: Atypical angina Nurse/Tech Notes S1,S2. Lungs clear to auscultation. Consent: The procedure was explained to the patient in lay terms. Informed consent was witnessed. Justo eout was entered into [employer]. History and Stress Test performed by RT Jerod (R) (N) Pharm. Details Pharmacologic stress testing was performed using 0.4mg per 5ml of regadenoson given intravenously ove r 7-10 seconds. Stress Symptoms Dyspnea,Nausea, chest pain mid/left side POST EXERCISE Reason for Termination: Infusion complete Target HR: No Max HR: 99 bpm Max Blood Pressure: 188/69mmHg Blood Pressure response to exercise: Normal blood pressure response during stress. Heart Rate response to exercise: WNL Chest Pain: Yes. see note above Arrhythmia: Yes. PVC's ST Change: No. INTERPRETATION Stress EKG Conclusion: No evidence of stress induced EKG changes. Imaging Protocol IMAGE PROTOCOL: Rest Tc-99m/stress Tc-99m 1 day Rest: Stress: Viability: Radiopharm.Tc99m GrwcscdhxAe80h Sestamibi Dose12.2mCi 33.5mCi Duration 15min. 13min. Img Date 12/13/2017 12/13/2017 Inj-Img Sktw62krk. 60min. STRESS DATA End Diast. Vol.66.0mlLVEDV index BSA39.0ml End Syst. Vol.14.0mlLVESV index BSA8.0ml Myocardial Dygs982.0gEject. Lwhanurv96.0% Stress Scores Regional WT1.00Summed WT2.00 Regional WM0.00Summed WM0.00 The rest and stress images show normal perfusion, normal contraction and thickening. LV Perf. Quant 17 Seg. SSS0.00 17 Seg. SRS2.00 17 Seg. SDS0.00 Stress Defect Extent (% LAD)0.00Rest Defect Extent (% LAD)0.00Rev. Defect Extent (% LAD)0.00 Stress Defect Extent (% LCX) 0.00Rest Defect Extent (% LCX)0.00Rev. Defect Extent (% LCX)0.00 Stress Defect Extent (% RCA)0.00Rest Defect Extent (% RCA)23.30Rev. Defect Extent (% RCA)0.00 Stress Defect Extent (% AMMON)0.00Rest Defect Extent (% AMMON)6.50Rev. Defect Extent (% AMMON)0.00 Other Information Quality:Good Risk Assessment: Low Risk Conclusion 1. No evidence of EKG changes with stress testing. 2. Normal perfusion at stress/rest. 3. Low risk study. 4. EF > 60%. Signed by : Ryne Arana, Electronically Approved : 12/13/2017 11:48:30
== END | disposition home or self-care (01) ==
LOC: NM 09:55
PROVIDERS: ATTEND Internal Medicine Cardiovascular Disease
DX: R07.9 Chest pain, unspecified (principal); I10 Essential (primary) hypertension; E11.9 Type 2 diabetes mellitus without complications; J45.909 Unspecified asthma, uncomplicated; Z82.5 Family history of asthma and other chronic lower respiratory diseases
CPT/HCPCS: 78452; 93017; 96374; 96375; 96376; A9500; J2785

== ENCOUNTER → 2018-02-27 | Outpatient (CLI) | payer MEDICARE, OTHER ==
[2017-12-07 13:08] VITALS: BP 178/80
[~2018-02-27] VITALS: Ht 165.1 cm; Wt 65.8 kg
[~2018-02-27] MED LIST changes: -AMLO10TA6 PO; +AMLO10TA8 PO; +MONT10TA49 PO; -MONT10TA9 PO; +OMEP20CA10 PO; -OMEP20CA9 PO; -REGADENOSON 0.4 MG/5 ML DISP.SYRIN. IV ONE; +SINCALIDE 1.3 MCG in IV NORMAL SALINE 50ML 30 ML IV ONE
--- NOTE | 2018-02-27 08:40 | RAD ---
Ultrasound of the abdomen 02/27/2018 CLINICAL HISTORY: Epigastric pain. TECHNIQUE: A real-time ultrasound examination of the abdomen was performed. Multiple images were obtained. FINDINGS: Comparison is made to a CT scan of the abdomen dated 10/13/2017. The gallbladder is well-distended. No gallstones are visualized. The gallbladder wall thickness is within normal limits. No pericholecystic fluid is seen. The common bile duct measures 5 mm in diameter which is within normal limits. The liver is normal in size. It measures 14.8 cm in length. Within the right lower lobe a well-defined rounded area of increased echogenicity is seen. This measures 1.1 cm in greatest diameter. It is consistent with a hemangioma. No additional abnormality of the liver is seen. The spleen, visualized portions of the pancreas and both kidneys are within normal limits. The abdominal aorta tapers normally. The inferior vena cava is within normal limits. No free fluid is seen. IMPRESSION: Negative study. Electronically signed by: Camacho Ramos MD (02/27/2018 8:36 AM) [facility]
--- NOTE | 2018-02-27 11:46 | RAD ---
Radionuclide hepatobiliary scan with gallbladder ejection fraction, 02/27/2018: HISTORY: Lower abdominal pain Following IV injection of 5.0 mCi of technetium 99m Choletec there was prompt uptake of the radionuclide from the blood stream by the liver. Activity is present in the bile ducts at 10 minutes, the small bowel at 15 minutes and the gallbladder at 20 minutes. Additional imaging of the gallbladder was then performed following IV injection of 1.3 mcg of cholecystokinin. The gallbladder ejection fraction was calculated at 85 percent. IMPRESSION: 1. Normal radionuclide hepatobiliary scan. 2. The gallbladder ejection fraction is 85 percent. Electronically signed by: Thanh Daniels MD (02/27/2018 11:42 AM) [facility] [place]
== END | disposition home or self-care (01) ==
LOC: US 07:10
PROVIDERS: ATTEND Internal Medicine Gastroenterology
DX: D18.03 Hemangioma of intra-abdominal structures (principal); K82.8 Other specified diseases of gallbladder
CPT/HCPCS: 76700; 78227; A9537; J2805

== ENCOUNTER → 2018-06-20 | Outpatient (CLI) | payer MEDICARE, OTHER ==
[2017-12-07 13:08] VITALS: BP 178/80
[~2018-06-20] MED LIST changes: -MONT10TA49 PO; +MONT10TA9 PO; -SINCALIDE 1.3 MCG in IV NORMAL SALINE 50ML 30 ML IV ONE
--- NOTE | 2018-06-20 16:16 | KCIC ---
Indication: Postmenopausal screening for osteoporosis. COMPARISON: None available. Bone Density: -BMD: (g/cm2) - AP Spine Total (L1-L4).......... 0.942. - Total left Hip................. 0.721. T-Score: - AP Spine Total (L1-L4)......... -1.0. - Total left Hip................. -1.8. Z-Score: - AP Spine Total (L1-L4).......... 0.8. - Total left Hip................. -0.7. World Health Organization criteria for BMD interpretation classify patients as Normal (T-score at or above -1.0), Osteopenic (T-score between -1.0 and -2.5), or Osteoporotic (T-score at or below -2.5). Impression: 1. AP Spine Total L1-L4--- borderline normal.. 2. Total left Hip--- osteopenia. Electronically signed by: Donny Osei MD (06/20/2018 4:12 PM) [place] [id number]
== END | disposition home or self-care (01) ==
LOC: KCIC DEXA 09:58
PROVIDERS: ATTEND Family Medicine
DX: Z13.820 Encounter for screening for osteoporosis (principal); M85.88 Other specified disorders of bone density and structure, other site; E11.9 Type 2 diabetes mellitus without complications
CPT/HCPCS: 77080

== ENCOUNTER → 2018-10-30 | Outpatient (CLI) | payer MEDICARE, OTHER ==
[2017-12-07 13:08] VITALS: BP 178/80
[~2018-10-30] MED LIST changes: -EZET10TA18 PO; +EZET10TA20 PO; +MONT10TA49 PO; -MONT10TA9 PO
--- NOTE | 2018-10-31 13:44 | RAD ---
DATE: 10/30/2018 10:17 AM EXAM: DIGITAL DIAGNOSTIC LT, BREAST LEFT HISTORY: further evaluation of a finding noted on her most recent screening mammographic examination. On that examination a mass was reported within the left retroareolar breast COMPARISON: 09/13/2018, 06/30/2017 Spot compression MLO and cc views of the left breast as well as full field ML view of the left breast was obtained This study was interpreted with the benefit of Computerized Aided Detection (CAD). FINDINGS: Breast Density: SCATTERED The breast parenchyma shows scattered fibroglandular densities. Breast parenchyma level B The retroareolar left breast nodule is again seen, similar in appearance on the compression views. Therefore this was further assessed by ultrasound. ULTRASOUND FINDINGS: Targeted ultrasound of the mammographic area of concern was performed. In the retroareolar left breast numerous mildly prominent ducts are seen. No significant debris or solid mass is seen within the ducts. This likely corresponds to findings seen on prior mammogram. IMPRESSION: No mammographic evidence of malignancy. BI-RADS CATEGORY: 2 BENIGN FINDING(S) RECOMMENDED FOLLOW-UP: 12M 12 MONTH FOLLOW-UP Annual screening mammography is recommended, unless clinically indicated sooner based on symptoms or change in physical exam. PQRS compliance statement: Patient information was entered into a reminder system with a target due date for the next mammogram. Mammography is a sensitive method for finding small breast cancers, but it does not detect them all and is not a substitute for careful clinical examination. A negative mammogram does not negate a clinically suspicious finding and should not result in delay in biopsying a clinically suspicious abnormality. "Our facility is accredited by the [employer] Mammography Program."
== END | disposition home or self-care (01) ==
LOC: MAMMO 14:13
PROVIDERS: ATTEND Obstetrics & Gynecology
DX: N63.20 Unspecified lump in the left breast, unspecified quadrant (principal)
CPT/HCPCS: 76641; 77065

== ENCOUNTER → 2019-04-19 | Outpatient (CLI) | payer MEDICARE, OTHER ==
[2017-12-07 13:08] VITALS: BP 178/80
[~2019-04-19] MED LIST changes: -MOME45CR2 TP; +MOME45CR3 TP; -OMEP20CA10 PO; +OMEP20CA16 PO
--- NOTE | 2019-04-19 11:12 | CARD ---
MR#: [id number] Date of Study: 04/19/2019 Ordering Physician: VIOLETA REYEZ, Referring Physician: VIOLETA REYEZ, Tech: Monica Saucedo JOSE C APPROVED REPORT EXAM: Two-dimensional and M-mode echocardiogram with Doppler and color Doppler. Other Information Quality : Good INDICATION Hypertension/HCVD 2D DIMENSIONS RVDd2.6 (2.9-3.5cm)Left Atrium(2D)2.9 (1.6-4.0cm) IVSd0.8 (0.7-1.1cm)Aortic Root(2D)2.7 (2.0-3.7cm) LVDd4.8 (3.9-5.9cm)LVOT Diameter2.0 (1.8-2.4cm) PWd0.7 (0.7-1.1cm)LVDs2.5 (2.5-4.0cm) FS (%) 30.0 %SV85.4 ml LVEF(%)60.0 (>50%) Aortic Valve AoV Peak Leonides.125.5cm/sAoV VTI22.7cm AO Peak GR.6.3mmHgLVOT Peak Leonides.97.2cm/s LVOT VTI 20.50cmAO Mean GR.4mmHg DEAN (VMAX)2.01br2JHV (VTI)2.84cm2 Mitral Valve MV E Wqhvdmtz09.9cm/sMV DECEL HZKS316gc MV A [place]588.0cm/sMV FKC91mh E/A Ratio0.7MVA (PHT)3.05cm2 TDI E/Lateral E'8.6E/Medial E'14.9 Tricuspid Valve TR P. Rwvjaode841ib/sRAP DYJOOANH1hnYa TR Peak Gr.78erKxGDRW04qhRh Pulmonary Vein S1 Tyqvuzet98.2cm/sD2 Pjldhqkl89.9cm/s LEFT VENTRICLE The left ventricle is normal size. There is normal left ventricular wall thickness. The left ventricu lar systolic function is normal. The Ejection Fraction is 55-60%. There is normal LV segmental wall m otion. Transmitral Doppler flow pattern is Grade I-abnormal relaxation pattern. RIGHT VENTRICLE The right ventricle is normal size. The right ventricular systolic function is normal. ATRIA The left atrium size is normal. The right atrium size is normal. The interatrial septum is intact wit h no evidence for an atrial septal defect or patent foramen ovale as noted on 2-D or Doppler imaging. AORTIC VALVE The aortic valve is normal in structure and function. Doppler and Color Flow revealed no significant aortic regurgitation. There is no significant aortic valvular stenosis. MITRAL VALVE The mitral valve is normal in structure and function. There is no evidence of mitral valve prolapse. There is no mitral valve stenosis. Doppler and Color-flow revealed trace mitral regurgitation. TRICUSPID VALVE The tricuspid valve is normal in structure and function. Doppler and Color Flow revealed trace tricus pid regurgitation. The PA pressure was estimated at 29 mmHg. There is no tricuspid valve stenosis. PULMONIC VALVE The pulmonary valve is normal in structure and function. Doppler and Color Flow revealed no pulmonic valvular regurgitation. There is no pulmonic valvular stenosis. GREAT VESSELS The aortic root is normal in size. The ascending aorta is normal in size. The IVC is normal in size a nd collapses >50% with inspiration. PERICARDIAL EFFUSION There is no evidence of significant pericardial effusion. Critical Notification Critical Value: No <Conclusion> The left ventricular systolic function is normal. The Ejection Fraction is 55-60%. There is normal LV segmental wall motion. Transmitral Doppler flow pattern is Grade I-abnormal relaxation pattern. Trace mitral regurgitation. Trace tricuspid regurgitation. The PA pressure was estimated at 29 mmHg. There is no evidence of significant pericardial effusion. Signed by : Krish Nguyen, Electronically Approved : 04/19/2019 11:12:07
--- NOTE | 2019-04-19 14:36 | RAD ---
MR#: [id number] Date of Study: 04/19/2019 Ordering Physician: VIOLETA REYEZ, Referring Physician: VIOLETA REYEZ, Tech: Charito Flor RVT,AYAAN APPROVED REPORT Patient Location: OUT-PATIENT Indications Claudication: Risk Factors Hypertension Hyperlipidemia Diabetes VELOCITY AND DOPPLER WAVEFORM ANALYSIS RIGHT cm/secWaveformSeverity LEFT cm/secWaveform Severity pCFA 128.6TriphasicpCFA 107.0Triphasic Prof Fem Art. 59.1BiphasicProf Fem Art. 53.3Biphasic Fem Art Prox. 115.0TriphasicFem Art Prox. 89.3Triphasic Fem Art Mid. 87.5TriphasicFem Art Mid. 78.1Triphasic Fem Art Dist. 104.8TriphasicFem Art Dist. 62.0Triphasic Pop Art(Fossa) 71.1TriphasicPop Art(AK) 59.9Triphasic [employer] Prox. 67.1BiphasicPTA Prox. 60.5Biphasic [employer] Dist. 45.7BiphasicPTA Dist. 61.5Biphasic Per Art Dist.48.9BiphasicPer Art Dist.57.3Biphasic BRENT Dist. 50.0BiphasicATA Dist. 51.4Biphasic DPA 50BiphasicDPA 42Biphasic Findings Velocities and spectral waveforms are noted as above. No significant lower extremity arterial disease bilaterally. Critical Notification Critical Value: No <Conclusion> No significant lower extremity arterial disease bilaterally Signed by : Ryne Arana, Electronically Approved : 04/19/2019 14:35:58
== END | disposition home or self-care (01) ==
LOC: ECHO 09:47
PROVIDERS: ATTEND Internal Medicine Cardiovascular Disease
DX: I10 Essential (primary) hypertension (principal); I73.9 Peripheral vascular disease, unspecified; R94.31 Abnormal electrocardiogram [ECG] [EKG]
CPT/HCPCS: 93306; 93925

== ENCOUNTER → 2019-09-24 | Outpatient (CLI) | payer MEDICARE, OTHER ==
[2017-12-07 13:08] VITALS: BP 178/80
[~2019-09-24] MED LIST changes: +MULT-445 PO; -MULT1TAB52 PO; -OXYC15TA PO; +OXYC15TA3 PO
--- NOTE | 2019-09-24 17:00 | RAD ---
DATE: 09/24/2019 1:49 PM EXAM: MAMMO MCKENZIE SCREENING BILATERAL HISTORY: Screening COMPARISON: 09/13/2018 Bilateral CC and MLO views of the breasts were performed. Bilateral breast tomosynthesis was performed in CC and MLO projections. FINDINGS: Breast Density: SCATTERED The breast parenchyma shows scattered fibroglandular densities. Breast parenchyma level B No suspicious masses, microcalcifications or architectural distortion is present to suggest malignancy in either breast. The visualized axillae are unremarkable. IMPRESSION: No mammographic evidence of malignancy. BI-RADS CATEGORY: 1 NEGATIVE RECOMMENDED FOLLOW-UP: 12M 12 MONTH FOLLOW-UP Annual screening mammography is recommended, unless clinically indicated sooner based on symptoms or change in physical exam. PQRS compliance statement: Patient information was entered into a reminder system with a target due date for the next mammogram. Mammography is a sensitive method for finding small breast cancers, but it does not detect them all and is not a substitute for careful clinical examination. A negative mammogram does not negate a clinically suspicious finding and should not result in delay in biopsying a clinically suspicious abnormality. "Our facility is accredited by the [employer] Mammography Program."
== END | disposition home or self-care (01) ==
LOC: MAMMO 13:32
PROVIDERS: ATTEND Nurse Practitioner Family
DX: Z12.31 Encounter for screening mammogram for malignant neoplasm of breast (principal)
CPT/HCPCS: 77063; 77067

== ENCOUNTER → 2019-09-27 | Outpatient (CLI) | payer MEDICARE, OTHER ==
[2017-12-07 13:08] VITALS: BP 178/80
[~2019-09-27] MED LIST changes: +GADOTERATE 7.5 MMOL/15ML VIAL. IVP ONE
[2019-09-27 10:15] LABS: CREATININE 0.9 mg/dL (0.6-1.0); GFR 73.7
--- NOTE | 2019-09-27 11:28 | RAD ---
MRI Brain without contrast History:Headache Technique: Multiplanar, multisequential noncontrast MR imaging was performed of the brain. Comparison: None Findings: There is some motion degradation. There is no evidence of recent infarct or cytotoxic edema. Ventricular size is within normal limits. There is mild generalized supratentorial atrophy.There is no significant midline shift, intraaxial mass effect, or focal abnormal extra-axial fluid collection. There is scattered [id number] T2 and FLAIR hyperintense signal of the supratentorial parenchyma bilaterally greatest of the periatrial and parietal white matter. There is preservation of the major intracranial flow-voids at the skull base. The cerebellar tonsils are normal in location. There is no significant abnormality of the pineal gland or pituitary gland. Paranasal sinuses are overall aerated. The mastoid air cells are aerated. There is preserved marrow signal of the clivus. Impression: 1. There is no evidence of recent infarct or intracranial mass effect. Scattered mild to moderate T2 and FLAIR hyperintense signal abnormality of the supratentorial parenchyma is nonspecific although more commonly due to chronic microvascular ischemic disease in a patient this age. There is mild generalized supratentorial atrophy. Electronically signed by: Emil Garrido MD (09/27/2019 11:25 AM) [id number]
== END | disposition home or self-care (01) ==
LOC: MRI 09:43
PROVIDERS: ATTEND Nurse Practitioner Family
DX: G31.89 Other specified degenerative diseases of nervous system (principal); R51 Headache
CPT/HCPCS: 36415; 70551; 82565; 84520

== ENCOUNTER → 2020-03-06 | Outpatient (CLI) | payer MEDICARE, OTHER ==
[2017-12-07 13:08] VITALS: BP 178/80
[~2020-03-06] MED LIST changes: +AMLO-187 PO; -AMLO10TA8 PO; -GADOTERATE 7.5 MMOL/15ML VIAL. IVP ONE
--- NOTE | 2020-03-06 17:04 | RAD ---
INDICATION: Reason: COUGH. LEFT SIDED CHEST PAIN X3 WEEKS / Spl. Instructions: / History: COMPARISON: September 2017 FINDINGS: 2 view of chest obtained. Degenerative changes of the spine. Cardiac silhouette is unremarkable. No focal airspace consolidation. IMPRESSION: * No focal airspace consolidation or edema. Electronically signed by: Zaid Velasquez MD (03/06/2020 5:02 PM) [id number]
== END ==
LOC: RAD 12:40
PROVIDERS: ATTEND Nurse Practitioner Family
DX: R05 Cough (principal); M47.814 Spondylosis without myelopathy or radiculopathy, thoracic region
CPT/HCPCS: 71046

== ENCOUNTER → 2020-03-06 | Outpatient (CLI) | payer MEDICARE, OTHER ==
[2017-12-07 13:08] VITALS: BP 178/80
[~2020-03-06] MED LIST changes: +METH-562 PO; -METH750T2 PO
--- NOTE | 2020-03-07 10:48 | RAD ---
Exam performed: Left shoulder 3 views. Indication: Chronic left shoulder pain Date of Service: 03/06/2020. Comparison: None available Field 6 viewsField 7 shoulder findings: AP of the left shoulder in internal and external rotation as well as Y view is obtained Normal alignment of the glenohumeral and acromioclavicular joint is preserved. There is no acute frac ture or dislocation. No obvious soft tissue swelling or foreign body seen. Visualized left lung is cl ear Impression: 1. No acute abnormality seen in the left shoulder. Electronically signed by: Radha Kelly MD (03/07/2020 10:46 AM) [id number]
== END ==
LOC: RAD 12:32
PROVIDERS: ATTEND Physical Medicine & Rehabilitation
DX: M75.52 Bursitis of left shoulder (principal); G89.29 Other chronic pain
CPT/HCPCS: 73030

== ENCOUNTER → 2020-08-11 | Outpatient (CLI) | payer MEDICARE, OTHER ==
[2017-12-07 13:08] VITALS: BP 178/80
[~2020-08-11] MED LIST changes: -VALS1TAB22 PO; +VALS1TAB23 PO
--- NOTE | 2020-08-11 16:16 | KCIC ---
EXAM: Bilateral knees, 3 views. HISTORY: Pain. COMPARISON: None. FINDINGS: 3 views of both knees are obtained. There is a left knee arthroplasty in expected position. There is no evidence of arthroplasty loosening or periprosthetic fracture. There is trace left knee joint fluid and there are small left knee joint loose bodies. There is a unicompartmental medial comp artment right knee arthroplasty. There is severe intractable spurring of the right knee and a small r ight knee effusion. There are right knee joint loose bodies. IMPRESSION: 1. Left knee arthroplasty in expected position. There is no acute osseous finding involving the left knee. 2. Medial compartment unicompartmental right knee arthroplasty. There is severe osteoarthritis involv ing the right knee with small joint effusion. Electronically signed by: April Huggins MD (08/11/2020 4:13 PM) [email or web address]
== END ==
LOC: KCIC 14:45
PROVIDERS: ATTEND Physical Medicine & Rehabilitation
DX: M17.11 Unilateral primary osteoarthritis, right knee (principal); M25.461 Effusion, right knee; Z96.652 Presence of left artificial knee joint
CPT/HCPCS: 73562-50

== ENCOUNTER → 2020-09-10 | Outpatient (CLI) | payer MEDICARE, OTHER ==
[2017-12-07 13:08] VITALS: BP 178/80
[~2020-09-10] MED LIST changes: +CONTRAST GIVEN. MC PRN; +IOHEXOL 240 MG/ML 50ML VIAL. PO ONE; +IOHEXOL 300 MG/ML 100ML VIAL. IV ONE
--- NOTE | 2020-09-10 13:11 | RAD ---
Examination: CT of the abdomen pelvis with oral and IV contrast HISTORY: History of abdominal pain, umbilical hernia COMPARISON: 10/13/2017 TECHNIQUE: Axial CT images of the abdomen pelvis with oral and IV contrast. Coronal and sagittal refo rmats are performed Exposure: One or more of the following individualized dose reduction techniques were utilized for thi s examination: 1. Automated exposure control 2. Adjustment of the mA and/or kV according to patient size 3. Use of iterative reconstruction technique FINDINGS: Minimal bibasilar lung atelectasis. No evidence of free air identified in the abdomen. There is a 8 m m cystic structures identified in the left lobe of the liver, probably cyst. The spleen, adrenals leonor ssly appears unremarkable. The gallbladder is mildly distended. The stomach is mildly distended. Panc reas grossly appears unremarkable The small bowel is nondilated. The appendix is normal. Feces and gas noted in the colon urinary bladd er is mildly distended The bilateral kidneys enhance symmetrically Moderate degenerative changes thoracolumbar spine. IMPRESSION: 1. No acute intra-abdominal findings. 2. 8 mm cystic structure identified in the left lobe of the liver, probably cyst. Electronically signed by: Alok Quiroga MD (09/10/2020 1:08 PM) [id number]
== END ==
LOC: CT 09:55
PROVIDERS: ATTEND Nurse Practitioner Family
DX: J98.4 Other disorders of lung (principal); K82.8 Other specified diseases of gallbladder; M47.815 Spondylosis without myelopathy or radiculopathy, thoracolumbar region; J98.11 Atelectasis
CPT/HCPCS: 74177; Q9966; Q9967

== ENCOUNTER 2020-12-27 09:35 | Emergency (ER) | payer MEDICARE, OTHER ==
[2017-12-07 13:08] VITALS: BP 178/80
[~2020-12-27] VITALS: Ht 160 cm; Wt 65.0 kg
[~2020-12-27 09:35] MED LIST changes: -CONTRAST GIVEN. MC PRN; -IOHEXOL 240 MG/ML 50ML VIAL. PO ONE; -IOHEXOL 300 MG/ML 100ML VIAL. IV ONE
--- NOTE | 2020-12-27 10:15 | RAD ---
Right foot 3 views. HISTORY: Right third toe pain, injury 3 views were taken of the right foot. There is an oblique fracture through the proximal phalanx of th e right third toe without significant displacement. Fracture is best seen on the oblique view. No oth er fracture or osseous abnormality is noted. IMPRESSION: 1. Fracture proximal phalanx right third toe. Electronically signed by: John Petersen MD (12/27/2020 10:13 AM) [facility]
--- NOTE | 2020-12-27 10:18 | PHYS DOC ---
Past Medical History Past Medical History: Diabetes-Type II, Fibromyalgia, Hypertension, Other Additional Past Medical Histor: CHRONIC PAIN Past Surgical History: Other Additional Past Surgical Histo: HERNIA Smoking Status: Never Smoker Alcohol Use: None Drug Use: None General Adult EDM: Chief Complaint: TOE PROBLEM HPI: HPI: Patient is a 80-year-old female who presents to the emergency department for right third toe pain. Patient reports that she stepped her toe Gt. She rates her pain 8 out of 10 and describes it as a throbbing pain. She reports that it does radiate up her foot. She has a history of fibromyalgia, arthritis and neuropathy. She takes Lyrica, 15 mg oxycodone and diclofenac. Patient denies any decreased range of motion, wounds or decreased sensation to her foot. Review of Systems: Review of Systems: Musculoskeletal: See HPI Integument: See HPI Neurologic: See HPI Heart Score: C/O Chest Pain: N/A Risk Factors: Risk Factors: DM, Current or recent (<one month) smoker, HTN, HLP, family history of CAD, obesity. Risk Scores: Score 0 - 3: 2.5% MACE over next 6 weeks - Discharge Home Score 4 - 6: 20.3% MACE over next 6 weeks - Admit for Clinical Observation Score 7 - 10: 72.7% MACE over next 6 weeks - Early Invasive Strategies Allergies: Allergies: Allergies Coded Allergies Type Severity Reaction Last Updated Verified acetaminophen Allergy Intermediate 12/07/17 Yes atorvastatin Allergy Intermediate 12/07/17 Yes cyclobenzaprine Allergy Intermediate 12/07/17 Yes latex Allergy Intermediate 12/07/17 Yes morphine Allergy Intermediate 12/07/17 Yes pravastatin Allergy Intermediate 12/07/17 Yes propoxyphene Allergy Intermediate 12/07/17 Yes verapamil Allergy Intermediate 12/07/17 Yes Physical Exam: PE: Constitutional: Well developed, well nourished, no acute distress, non-toxic appearance. [] HENT: Normocephalic, atraumatic, bilateral external ears normal, oropharynx moist, no oral exudates, nose normal. [] Eyes: PERRL, EOMI, conjunctiva normal, no discharge. [] Neck: Normal range of motion, no stridor Cardiovascular: Normal peripheral perfusion Lungs & Thorax: Normal work of breathing, no tachypnea Abdomen: Soft and flat Skin: Warm, dry, no erythema, no rash. [] Back: Normal range of motion Extremities: No tenderness, no cyanosis, no clubbing, ROM intact, no edema. [] Right third toe: No wounds, no obvious deformity, range of motion intact, neuro intact Neurologic: Alert and oriented X 3, normal motor function, normal sensory function, no focal deficits noted. [] Psychologic: Affect normal, judgement normal, mood normal. [] Current Patient Data: Vital Signs: Vital Signs Date Time Temp Pulse Resp B/P (MAP) Pulse Ox O2 Delivery O2 Flow Rate FiO2 12/27/20 09:45 98.1 79 18 183/79 (113) 97 Room Air 98.1 EKG: EKG: [] Radiology/Procedures: Radiology/Procedures: []PROCEDURE: FOOT RIGHT 3V Right foot 3 views. HISTORY: Right third toe pain, injury 3 views were taken of the right foot. There is an oblique fracture through the proximal phalanx of the right third toe without significant displacement. Fracture is best seen on the oblique view. No other fracture or osseous abnorm ality is noted. IMPRESSION: 1. Fracture proximal phalanx right third toe. Electronically signed by: John Petersen MD (12/27/2020 10:13 AM) [facility] DICTATED and SIGNED BY: JOHN PETERSEN MD DATE: 12/27/20 [id number] Course & Med Decision Making: Course & Med Decision Making Patient presents to the emergency department for right third toe pain after stubbing it 1 week ago. X-ray was performed that showed proximal phalanx fractu re of r. third toe. Toe herminio taped and post op shoe placed. Patient advised to take Tylenol and/or ibuprofen for pain and apply ice. I discussed with patient all findings and diagnostic testing as well as the need to follow-up with PCP for further evaluation and treatment or return to the ER if any new or worsening symptoms. Strict return precautions were also discussed at length. Patient voiced understanding and agreement with the plan. Patient is hemodynamically stable at the time of disposition. Pertinent Labs and Imaging studies reviewed. (See chart for details) [] Dragon Disclaimer: Dragon Disclaimer: This electronic medical record was generated, in whole or in part, using a voice recognition dictation system. Departure Departure Impression: Primary Impression: Toe fracture Qualified Codes: S92.514A - Nondisplaced fracture of proximal phalanx of right lesser toe(s), initial encounter for closed fracture Disposition: 01 HOME / SELF CARE / HOMELESS Condition: GOOD Referrals: WILFRID HUDDLESTON APRN (PCP) ADELFO HALL DO Patient Instructions: Toe Fracture Additional Instructions: You were seen in the emergency department for right third toe pain. An x-ray was performed and and you have a toe fracture. Your toe was herminio taped for support and comfort and you were given a postop shoe to wear. Continue to use these at home for comfort and support. You can continue taking the pain me dication as previously prescribed for you as well as anti-inflammatory medications. You can apply ice. Follow-up with an orthopedic doctor within a week. You are given follow up information for an orthopedic doctor associated with this hospital. Return to the emergency department if you have worsening of your pain, inability to bear weight or walk, decreased range of motion or d ecreased sensation to your extremity. MARCIE VEGA APRN Dec 27, 2020 10:18
== END 2020-12-27 11:55 | disposition home or self-care (01) ==
LOC: ER 09:35
DX: S92.514A Nondisplaced fracture of proximal phalanx of right lesser toe(s), initial encounter for closed fracture (principal); E11.40 Type 2 diabetes mellitus with diabetic neuropathy, unspecified; I10 Essential (primary) hypertension; G89.29 Other chronic pain; Z88.5 Allergy status to narcotic agent; Z88.6 Allergy status to analgesic agent; Z91.040 Latex allergy status; Z88.8 Allergy status to other drugs, medicaments and biological substances; W22.8XXA Striking against or struck by other objects, initial encounter; Y93.89 Activity, other specified; Y92.89 Other specified places as the place of occurrence of the external cause; Y99.8 Other external cause status
CPT/HCPCS: 73630; 99283